=== PATIENT | male | born 1970 ===

== ENCOUNTER 2020-07-21 08:21 | Outpatient (CLI) | payer OTHER ==
--- NOTE | 2020-07-21 13:31 | Treadmill Report ---
PROCEDURE: This being done on 49-year-old gentleman for evaluation of chest pains. Baseline EKG showed sinus rhythm at a rate of 79 beats per minute, within normal limits. The patient exercised for 10 minutes on standard Jake protocol. Attained heart rate of 173 beats per minute, which is 100% of target heart rate. Test was stopped due to fatigue and shortness of breath. Did not have any chest pain. No EKG changes were noted to suggest ischemia. Blood pressure response is appropriate. No arrhythmias were noted. FINAL IMPRESSION: 1. Very good exercise tolerance. 2. Negative for angina, negative for ischemia. 3. Appropriate blood pressure response. 4. No arrhythmia noted. JOB# [id number] IZAIAH/SREEKANTH
== END 2020-07-21 08:22 | disposition home or self-care (01) ==
LOC: CARD 08:21
PROVIDERS: ATTEND Internal Medicine
DX: R07.9 Chest pain, unspecified (principal); E11.9 Type 2 diabetes mellitus without complications; R06.02 Shortness of breath; H40.9 Unspecified glaucoma; Z86.39 Personal history of other endocrine, nutritional and metabolic disease
CPT/HCPCS: 93017